=== PATIENT | female | born 1975 | race Caucasian/White ===

== ENCOUNTER 2017-03-17 00:05 | Emergency (ER) | payer SELFPAY | END 2017-03-17 01:45 | disposition home or self-care (01) | LOC: D.ER 00:05 | DX: M77.11 Lateral epicondylitis, right elbow (principal) ==

== ENCOUNTER 2017-04-12 18:00 | Emergency (ER) | payer SELFPAY | END 2017-04-12 19:00 | disposition home or self-care (01) | LOC: D.ER 18:00 | DX: M79.642 Pain in left hand (principal) ==